=== PATIENT | female | born 1995 | race Caucasian/White ===

== ENCOUNTER 2017-08-31 12:04 | Emergency (ER) | payer OTHER ==
[2017-08-31 12:18] VITALS: BP 154/71; PULSE 110; TEMP 98; BMI 28.2
--- NOTE | 2017-08-31 13:33 | PDOC ---
Attending Attestation - Resident Resident Name: RoniMartin - ED Attending Attestation I have performed the following: I have examined & evaluated the patient, The case was reviewed & discussed with the resident, I agree w/resident's findings & plan, Exceptions are as noted - HPI HPI: 08/31/17 13:49 22y F hx of graves presents with abdominal pain x 7 days, pt notes the pain is diffuse, crampy in nautre and relatively constant. associated with some nausea w /o any vomiting, fever/chills, dysuria, frequency, diarrhea, melena, bpr, cp, sob. pt endorses some palpitations and lightheadedness. Pt had gone to [facility] and had a neg CT, neg labs, neg and was dc however the syptoms have not significantlyimproved so she presents to the ED today. the sypms are not worse with exertion, no change with food intake, position. + passing gas, 2 prior csections, on exam pt has mildly hyperactive bowel sounds midl diffuse tenderness, wors ein the RUQ no le edema ddx: gastroenteritis, pancreatitis, gallstones will ck cbc, cmp, lipase, ua, hcg will reassess - Medical Decision Making 08/31/17 18:44 pts labs reivewed pts US negative pt feeling improved abd soft nontender at discharg will have pt fu with gi and pmd return precautions were discussed Heart Score/ECG Review - ECG Impressions Comment:: 08/31/17 14:57 Twelve-lead EKG was performed and reviewed by me. There is normal sinus rhythm with a normal rate. Rate of 80 The axis is normal. The intervals are normal. There is normal R wave progression There are no ST or T wave abnormalities. Impression: Normal twelve-lead EKG
[2017-08-31] MEDS ORDERED: ACETAMINOPHEN 325 MG TABLET (FP) PO ONE (13:57)
[2017-08-31] MEDS ORDERED: SODIUM CHLORIDE 1,000 ML IV ONE (13:57)
[2017-08-31] MEDS ORDERED: ACETAMINOPHEN 325 MG TABLET (FP) ONE (14:05)
[2017-08-31 14:29] LABS: URINE APPEARANCE CLEAR; URINE BILIRUBIN NEGATIVE (<2.0 mg/dL); URINE COLOR YELLOW; URINE GLUCOSE (UA) NEGATIVE (NEGATIVE); URINE KETONE NEGATIVE (NEGATIVE); URINE LEUK ESTERASE NEGATIVE (NEGATIVE); URINE NITRITE NEGATIVE (NEGATIVE); URINE PROTEIN NEGATIVE (NEGATIVE); URINE UROBILINOGEN NEGATIVE mg/dL (0.2-1.0)
[2017-08-31 14:31] LABS: BASO % 0.9 % (0-2.0); EOS % 0.7 % (0-4.5); HEMATOCRIT 42.9 % (32.4-45.2); HEMOGLOBIN 14.4 GM/dL (10.7-15.3); LYMPH % 28.6 % (8-40); MCH 27.5 pg (25.7-33.7); MCHC 33.7 g/dl (32.0-36.0); MEAN CELL VOLUME 81.8 fl (80-96); MEAN PLT VOLUME 8.2 fl (7.5-11.1); MONO % 8.5 % (3.8-10.2); NEUT % 61.3 % (42.8-82.8); PLATELET COUNT 290 K/MM3 (134-434); RBC 5.25 M/mm3 (3.60-5.2); RDW 13.2 % (11.6-15.6); WHITE BLOOD COUNT 7.8 K/mm3 (4.0-10.0)
[2017-08-31 14:33] LABS: HCG,QUALITATIVE URINE NEGATIVE
[2017-08-31] MEDS ORDERED: SODIUM CHLORIDE 1,000 ML IV STA (15:14)
[2017-08-31] MEDS ORDERED: morphine CARPU-JECT 4 MG/1 ML DISP.SYRIN IVPUSH ONE (15:14)
[2017-08-31] MEDS ORDERED: ONDANSETRON 4 MG/2 ML VIAL IVPUSH ONE (15:14)
--- NOTE | 2017-08-31 15:26 | PDOC ---
History of Present Illness - General Chief Complaint: Pain Stated Complaint: ABD PAIN Time Seen by Provider: 08/31/17 13:22 History Source: Patient Exam Limitations: No Limitations - History of Present Illness Initial Comments: 08/31/17 15:17 Ms. Green is a 22 yo F with a hx of Grave's disease, anemia, and a recent ED visit (08/29/2017 at [facility] for same chief complaint) presents to the emergency department with abdominal pain that has been ongoing for 7 days. She states the pain initially presented in the middle lower abdomen and radiated to her right lower back. She has concurrent right upper quadrant pain that radiates to the left upper quadrant for the past 2 days. She was at [facility] for the same chief complaint and states her "CT abdomen and test was negative". The pain currently is 10/10 constant with no specific relieving or aggravating factors. She endorses the following: Chest pain (7/10 left chest non radiating described as sharp), palpitations, dizziness , lightheadedness, nausea, and anxiety. She denies fever, SOB, dysuria, hx of nephrolithiasis, hx of cholelithiasis, hematuria, diarrhea/constipation, and melena. Pmhx: Graves disease (dx Dec 2016), anemia, and asthma Shx: 2012 and 2017 section Medications: methimazole and atenolol Allergies: None Social: smokes 0.5 packs of ciagarettes/day, drinks 6 pack beer daily, and denies substance abuse OBGYN hx: . LMP was 08/09/2017 PCP: Zakiya Aguayo Past History - Past Medical History Allergies/Adverse Reactions: Allergies Allergy/AdvReac Type Severity Reaction Status Date / Time No Known Allergies Allergy Verified 08/31/17 12:18 Anemia: Yes Asthma: Yes COPD: No Psychiatric Problems: Yes (anxiety) Thyroid Disease: Yes (Graves dx) - Immunization History Immunization Up to Date: Yes - Suicide/Smoking/Psychosocial Hx Smoking History: Never smoked Have you smoked in the past 12 months: No Number of Cigarettes Smoked Daily: 2 Information on smoking cessation initiated: No 'Breaking Loose' booklet given: 02/15/15 Hx Alcohol Use: No Drug/Substance Use Hx: No Substance Use Type: None *Physical Exam - Vital Signs Last Vital Signs Temp Pulse Resp BP Pulse Ox 98.0 F 110 H 16 154/71 100 08/31/17 12:16 08/31/17 12:16 08/31/17 12:16 08/31/17 12:16 08/31/17 12:16 ED Treatment Course - LABORATORY CBC & Chemistry Diagram: 08/31/17 14:04 08/31/17 16:43 - ADDITIONAL ORDERS Additional order review: Laboratory Results 08/31/17 08/31/17 08/31/17 14:04 14:04 14:04 Sodium Cancelled Potassium Cancelled Chloride Cancelled Carbon Dioxide Cancelled Anion Gap Cancelled BUN Cancelled Creatinine Cancelled Creat Clearance w eGFR Cancelled Random Glucose Cancelled Calcium Cancelled Total Bilirubin Cancelled AST Cancelled ALT Cancelled Alkaline Phosphatase Cancelled Total Protein Cancelled Albumin Cancelled Lipase Cancelled TSH Cancelled Urine Color Yellow Urine Appearance Clear Urine pH 7.0 Ur Specific [place] 1.018 Urine Protein Negative Urine Glucose (UA) Negative Urine Ketones Negative Urine Blood Negative Urine Nitrite Negative Urine Bilirubin Negative Urine Urobilinogen Negative Ur Leukocyte Esterase Negative Urine HCG, Qual Negative 08/31/17 14:04 RBC 5.25 H MCV 81.8 MCHC 33.7 RDW 13.2 MPV 8.2 D Neutrophils % 61.3 Lymphocytes % 28.6 D Monocytes % 8.5 Eosinophils % 0.7 Basophils % 0.9 - Medications Given in the ED: ED Medications Discontinued Medications Generic Name Dose Route Start Last Admin Trade Name Freq PRN Reason Stop Dose Admin Acetaminophen 650 mg 08/31/17 13:57 08/31/17 14:19 Tylenol - PO 08/31/17 13:58 650 mg ONCE ONE Administration Sodium Chloride 1,000 mls @ 1,000 mls/hr 08/31/17 13:57 08/31/17 14:19 Normal Saline - IV 08/31/17 14:56 1,000 mls/hr .Q1H ONE Administration Medical Decision Making - Medical Decision Making 08/31/17 18:12 Ms. Green is a 22 yo F with a hx of Grave's disease who presented to the emergency department with abdominal pain with associated nausea. Initial vitals: Initial Vital Signs Temp Pulse Resp BP Pulse Ox 98.0 F 110 H 16 154/71 100 08/31/17 12:16 08/31/17 12:16 08/31/17 12:16 08/31/17 12:16 08/31/17 12:16 Work up: CBC CMP, hcg, lipase, TSH, UA, and EKG. Laboratory Results - last 24 hr 08/31/17 08/31/17 08/31/17 14:04 14:04 14:04 WBC 7.8 RBC 5.25 H Hgb 14.4 Hct 42.9 MCV 81.8 MCH 27.5 MCHC 33.7 RDW 13.2 Plt Count 290 MPV 8.2 D Absolute Neuts (auto) 4.7 Neutrophils % 61.3 Lymphocytes % 28.6 D Monocytes % 8.5 Eosinophils % 0.7 Basophils % 0.9 Nucleated RBC % 0 Sodium Cancelled Potassium Cancelled Chloride Cancelled Carbon Dioxide Cancelled Anion Gap Cancelled BUN Cancelled Creatinine Cancelled Creat Clearance w eGFR Cancelled Random Glucose Cancelled Calcium Cancelled Total Bilirubin Cancelled AST Cancelled ALT Cancelled Alkaline Phosphatase Cancelled Total Protein Cancelled Albumin Cancelled Lipase TSH Cancelled Urine Color Yellow Urine Appearance Clear Urine pH 7.0 Ur Specific [place] 1.018 Urine Protein Negative Urine Glucose (UA) Negative Urine Ketones Negative Urine Blood Negative Urine Nitrite Negative Urine Bilirubin Negative Urine Urobilinogen Negative Ur Leukocyte Esterase Negative Urine HCG, Qual Negative 08/31/17 08/31/17 14:04 16:43 WBC RBC Hgb Hct MCV MCH MCHC RDW Plt Count MPV Absolute Neuts (auto) Neutrophils % Lymphocytes % Monocytes % Eosinophils % Basophils % Nucleated RBC % Sodium 142 Potassium 4.2 Chloride 110 H Carbon Dioxide 23 Anion Gap 9 BUN 7 Creatinine 0.4 L Creat Clearance w eGFR > 60 Random Glucose 94 Calcium 8.8 Total Bilirubin 0.5 AST 24 ALT 29 Alkaline Phosphatase 128 H Total Protein 7.0 Albumin 3.3 L Lipase Cancelled 66 L TSH 0.01 L Urine Color Urine Appearance Urine pH Ur Specific [place] Urine Protein Urine Glucose (UA) Urine Ketones Urine Blood Urine Nitrite Urine Bilirubin Urine Urobilinogen Ur Leukocyte Esterase Urine HCG, Qual RUQ US shows: 3 gallbader wall polyps measuring 0.8 cm, 0.6cm, and 0.5cm in diameter respectively. The CBD measures 0.4 cm in diameter. No other abnormalities noted. Treatment: Given 650 mg of tylenol originally with 1 liter of NS 0.9%. Subsequently, given zofran and morphine 4mg for persistent pain. *DC/Admit/Observation/Transfer Diagnosis at time of Disposition: Abdominal pain Qualifiers: Abdominal location: right upper quadrant Qualified Code(s): R10.11 - Right upper quadrant pain - Discharge Dispostion Disposition: HOME Decision to Admit order: No - Referrals Referrals: Gabriel Sanders MD [Staff Physician] - Chuyita Aguayo [Primary Care Provider] - Rk Clemens MD [Staff Physician] - - Patient Instructions Printed Discharge Instructions: DI for Abdominal Pain-Adult - Post Discharge Activity
[2017-08-31 17:25] LABS: ALBUMIN 3.3 g/dl (3.4-5.0); ANION GAP 9 (8-16); BILIRUBIN,TOTAL 0.5 mg/dL (0.2-1.0); BLOOD UREA NITROGEN 7 mg/dL (7-18); CALCIUM 8.8 mg/dL (8.5-10.1); CHLORIDE 110 mmol/L (98-107); CO2 23 mmol/L (21-32); CREATININE 0.4 mg/dL (0.55-1.02); GLUCOSE,RANDOM 94 mg/dL (74-106); LIPASE 66 U/L (73-393); POTASSIUM 4.2 mmol/L (3.5-5.1); SGOT/AST 24 U/L (15-37); SGPT/ALT 29 U/L (12-78); SODIUM 142 mmol/L (136-145)
[2017-08-31] MEDS ORDERED: morphine SULFATE 4 MG/ML VIAL ONE (17:25)
[2017-08-31] MEDS ORDERED: ONDANSETRON 4 MG/2 ML VIAL ONE (17:25)
[2017-08-31 17:34] LABS: ALK PHOS 128 U/L (45-117)
--- NOTE | 2017-09-01 11:31 | EKG ---
Test Reason : Blood Pressure : / mmHG Vent. Rate : 080 BPM Atrial Rate : 080 BPM P-R Int : 170 ms QRS Dur : 096 ms QT Int : 410 ms P-R-T Axes : 047 049 035 degrees QTc Int : 472 ms NORMAL SINUS RHYTHM WITH SINUS ARRHYTHMIA NORMAL ECG NO PREVIOUS ECGS AVAILABLE Confirmed by HANDY PEPPER, NANCY ([id number]) on 09/01/2017 11:31:20 AM Referred By: Confirmed By:NANCY MURRELL MD
== END 2017-08-31 19:32 | disposition home or self-care (01) ==
LOC: JER 12:04
PROC: 3E0337Z Introduction of Electrolytic and Water Balance Substance into Peripheral Vein, Percutaneous Approach (ICD-10-PCS; principal; 2017-08-31)
PROC: 3E033GC Introduction of Other Therapeutic Substance into Peripheral Vein, Percutaneous Approach (ICD-10-PCS; 2017-08-31)
PROC: 3E033NZ Introduction of Analgesics, Hypnotics, Sedatives into Peripheral Vein, Percutaneous Approach (ICD-10-PCS; 2017-08-31)
DX: R10.11 Right upper quadrant pain (principal); D64.9 Anemia, unspecified; E05.00 Thyrotoxicosis with diffuse goiter without thyrotoxic crisis or storm; F41.9 Anxiety disorder, unspecified; F17.210 Nicotine dependence, cigarettes, uncomplicated
CPT/HCPCS: 36415; 76705-TC; 80053; 81003; 83690; 84443; 84703; 85025; 93005; 93010; 96361; 96374; 96375; 99282-25; J7030

== ENCOUNTER 2017-12-22 17:36 | Emergency (ER) | payer SELFPAY ==
[2017-12-22 17:54] VITALS: BMI 27.4
--- NOTE | 2017-12-22 18:26 | PDOC ---
History of Present Illness - General Chief Complaint: Palpitations Stated Complaint: ELEVATED HEART RATE Time Seen by Provider: 12/22/17 18:24 History Source: Patient - History of Present Illness Initial Comments: 12/22/17 19:59 The patient is a 22 year old female @ a self-reported 20 weeks gestation and a PMH of Graves Disease who presents c/o a 4 day h/o palpitations. Denies associated chest pain or shortness of breath. Patient states she was following with an skip operator, however had to stop doing so for logistical (travel costs) and insurance issues. Was evaluated by her patient intake representative last week and prescribed Labetalol, however has not filled the prescription secondary to cost. H/o recent evaluation at outside ED and given Atenolol prescription but similarly did not fill that prescription. States she has recently contacted her endo and is about to restart evaluation and care. Patient denies other symptoms of hyperthyroidism including weight loss, anxiety , sweating, increased frequency of bowel movements. NKDA Surgical: C-S Social: 1/2 ppd; 6 pack of beer daily, denies recreational drugs PMD: Dr. Chuyita Aguayo OB-Survey Workers Supervisor: Dr. De Paz As per EMR, patient was last evaluated in our ED in 08/2017 for abdominal pain at which time GB U/S was negative and patient improved with symptomatic care. Past History - Past Medical History Allergies/Adverse Reactions: Allergies Allergy/AdvReac Type Severity Reaction Status Date / Time No Known Allergies Allergy Verified 12/22/17 17:42 Home Medications: Ambulatory Orders Methimazole [Tapazole -] 20 mg PO BID 12/22/17 Anemia: Yes Asthma: Yes COPD: No CHF: No Psychiatric Problems: Yes (anxiety) Thyroid Disease: Yes (Graves dx) - Immunization History Immunization Up to Date: Yes - Suicide/Smoking/Psychosocial Hx Smoking History: Never smoked Have you smoked in the past 12 months: No Number of Cigarettes Smoked Daily: 2 Information on smoking cessation initiated: No 'Breaking Loose' booklet given: 02/15/15 Hx Alcohol Use: No Drug/Substance Use Hx: No Substance Use Type: None Review of Systems - Review of Systems Constitutional: No: Chills, Fever HEENTM: No: Blurred Vision, Double Vision Respiratory: No: Shortness of Breath, Wheezing Cardiac (ROS): Yes: Palpitations. No: Lightheadedness, Syncope ABD/GI: No: Diarrhea, Nausea, Vomiting, Abdominal cramping : No: Burning, Dysuria *Physical Exam - Vital Signs Last Vital Signs Temp Pulse Resp BP Pulse Ox 98.1 F 100 H 16 118/52 L 100 12/22/17 17:36 12/22/17 17:36 12/22/17 17:36 12/22/17 17:36 12/22/17 17:36 - Physical Exam General Appearance: Yes: Nourished, Appropriately Dressed HEENT: positive: Normal Voice, Hearing Grossly Normal Neck: positive: Trachea midline, Supple Respiratory/Chest: positive: Lungs Clear, Normal Breath Sounds. negative: Rapid RR Cardiovascular: positive: S1, S2, Tachycardia Gastrointestinal/Abdominal: positive: Normal Bowel Sounds, Soft Extremity: positive: Normal Capillary Refill, Normal Inspection Integumentary: positive: Normal Color, Dry, Warm Neurologic: positive: driver service technician II-XII NML intact, Fully Oriented, Alert Heart Score/ECG Review - ECG Impressions Comment:: 12/22/17 19:58 Sinus Tachycardia, HR 105, no PENNY/STD/TWI - non ischemic ECG ED Treatment Course - LABORATORY CBC & Chemistry Diagram: 12/22/17 19:12 12/22/17 19:12 Medical Decision Making - Medical Decision Making 12/22/17 20:07 22 year old @ a self-reported 20 weeks gestation female with palpitations. H/o Graves Disease w/poor medical adherence. Mildly tachycardic (HR 100) at presentation other VS unremarkable. Low clinical suspicion for thyrotoxicosis given patient's clinical presentation. Will obtain basic labs, TSH, T3/T4, EKG. Reassess. 12/22/17 20:13 ECG non-ischemic, no arrthymia, - as documented in ECG section of EMR 12/22/17 21:54 CBC, CMP unremarkable Importance of sustained medical evaluation extensively discussed with patient. Patient notes she has a labetalol prescription from her patient intake representative however she has not filled it. Patient given information on $4 prescription drug program. 12/22/17 22:07 Beta HCG 17,001 At this time patient is stable, though remains mildly tachycardic (HR 106). TSH 0.01 c/w clinical presentation/HPI. Given patient's h/o untreated hypothyroidism , have low clinical suspicion for medical emergent condition causing tachycardia. T3/Free T4 pending - will post in 48 hours. 12/22/17 22:14 Patient again counseled extensively on importance of full evaluation by endocrinology. Will return to ED for new/worsening/concerning symptoms. *DC/Admit/Observation/Transfer Diagnosis at time of Disposition: Heart palpitations - Discharge Dispostion Disposition: HOME Condition at time of disposition: Good Decision to Admit order: No - Referrals Referrals: Chuyita Aguayo [Primary Care Provider] - - Patient Instructions Printed Discharge Instructions: DI for Graves Disease Additional Instructions: Please call your OB-Survey Workers Supervisor and have your Labetalol prescription sent to one of the $4 pharmacies. It is very important that you reestablish care with your skip operator. Return to the Emergency Department for any new/worsening/concerning symptoms. - Post Discharge Activity
[2017-12-22] MEDS ORDERED: SODIUM CHLORIDE 0.9% 500 ML INFUS.BAG IV ONE (18:27)
--- NOTE | 2017-12-22 18:31 | PDOC ---
Attending Attestation - HPI HPI: 12/22/17 19:36 The patient is a 22 year old female who is currently 5 months , with a significant past medical history of Graves disease, who presents to the ED complaining of palpitations for the past 4 days. She reports that 4 days ago she went to another hospital for evaluation of palpitations. She was given atenolol and sent home. She notes that 3 days ago she saw her VENDING MACHINE OPERATOR for the same issue, who prescribed her labetalol but has not been able to take it due to an insurance issue. The patient denies chest pain, shortness of breath, headache and dizziness. Denies fever, chills, nausea, vomiting, diarrhea or constipation. Denies dysuria , frequency, urgency and hematuria. Allergies: None Past surgical history: . Social History: No alcohol, tobacco or drug use reported - Physicial Exam PE: 12/22/17 19:37 Constitutional: Awake, alert, oriented. No acute distress. Head: Normocephalic. Atraumatic Eyes: PERRL. EOMI. Conjunctivae are not pale. ENT: Mucous membranes are moist and intact. Posterior pharynx without exudates or erythema. Uvula midline. Neck: Supple. Full ROM. No lymphadenopathy. Cardiovascular: Regular rate. Regular rhythm. S1, S2 regular. Distal pulses are 2+ and symmetric. Pulmonary/Chest: No evidence of respiratory distress. Clear to auscultation bilaterally No wheezing, rales or rhonchi. Abdominal: (+) Protuberant belly. Soft. There is no tenderness. No rebound, guarding or rigidity. No organomegaly. No palpable masses. Good bowel sounds. Back: No CVA tenderness. Musculoskeletal: No edema. No cyanosis. No clubbing. Full range of motion in all extremities. Nocalf tenderness. Radial/pedal pulses are intact and 2+ bilaterally Skin: Skin is warm and dry. No petechiae. No purpura. Neurological: Alert and oriented to person, place, and time. Cranial nerves II -XII are grossly intact. Normal speech. Strength is grossly symmetric. No sensory deficits. Psychiatric: Good eye contact. Normal interaction, affect and behavior. <Chance Hooks - Last Filed: 12/22/17 19:38> - Resident Resident Name: Ananbel Encinas - ED Attending Attestation I have performed the following: I have examined & evaluated the patient, The case was reviewed & discussed with the resident, I agree w/resident's findings & plan, Exceptions are as noted - HPI HPI: 12/22/17 18:30 22-year-old female with a history of Graves' disease. Presents with complaint of palpitations. Patient is 5 months . She denies any chest pain - Medical Decision Making 12/22/17 19:52 afebrile cbc is unremarkable normotensive 12/23/17 00:14 labs reviewed pt has a prescription for labetolol but has not yet filled it because of insurance issues. It was explained to her that either Danny or Jo have a drug prescription program and she could have her RX filled there <Vanessa Garcia - Last Filed: 12/23/17 00:15>
[2017-12-22 19:20] LABS: BASO % 0.1 % (0-2.0); HEMATOCRIT 35.6 % (32.4-45.2); HEMOGLOBIN 12.1 GM/dL (10.7-15.3); LYMPH % 22.8 % (8-40); MCH 27.2 pg (25.7-33.7); MCHC 34.1 g/dl (32.0-36.0); MEAN CELL VOLUME 79.9 fl (80-96); MEAN PLT VOLUME 7.9 fl (7.5-11.1); MONO % 7.3 % (3.8-10.2); NEUT % 69.8 % (42.8-82.8); PLATELET COUNT 241 K/MM3 (134-434); RBC 4.46 M/mm3 (3.60-5.2); RDW 13.3 % (11.6-15.6); WHITE BLOOD COUNT 8.8 K/mm3 (4.0-10.0)
[2017-12-22 20:06] LABS: ALBUMIN 2.8 g/dl (3.4-5.0); ALK PHOS 93 U/L (45-117); ANION GAP 9 MMOL/L (8-16); BILIRUBIN,TOTAL 0.3 mg/dL (0.2-1); BLOOD UREA NITROGEN 8 mg/dL (7-18); CALCIUM 8.2 mg/dL (8.5-10.1); CHLORIDE 108 mmol/L (98-107); CO2 21 mmol/L (21-32); CREATININE 0.2 mg/dL (0.55-1.3); GLUCOSE,RANDOM 92 mg/dL (74-106); POTASSIUM 4.1 mmol/L (3.5-5.1); SGOT/AST 18 U/L (15-37); SGPT/ALT 21 U/L (13-61); SODIUM 138 mmol/L (136-145); TOT PROT 6.5 g/dl (6.4-8.2)
[2017-12-22 21:06] VITALS: BP 132/54
[2017-12-22 21:15] VITALS: PULSE 106; TEMP 97.9
--- NOTE | 2017-12-23 16:30 | EKG ---
Test Reason : Blood Pressure : / mmHG Vent. Rate : 105 BPM Atrial Rate : 105 BPM P-R Int : 150 ms QRS Dur : 084 ms QT Int : 344 ms P-R-T Axes : 039 036 031 degrees QTc Int : 454 ms SINUS TACHYCARDIA OTHERWISE NORMAL ECG WHEN COMPARED WITH ECG OF 31-AUG-2017 14:39, T WAVE AMPLITUDE HAS DECREASED IN ANTERIOR LEADS Confirmed by MD Morenita, Dre ([id number]) on 12/23/2017 4:29:50 PM Referred By: Confirmed By:Dre Xavier MD
== END 2017-12-22 22:01 | disposition home or self-care (01) ==
LOC: JER 17:36
DX: O26.892 Other specified pregnancy related conditions, second trimester (principal); R00.2 Palpitations; O99.282 Endocrine, nutritional and metabolic diseases complicating pregnancy, second trimester; E05.00 Thyrotoxicosis with diffuse goiter without thyrotoxic crisis or storm; Z3A.20 20 weeks gestation of pregnancy
CPT/HCPCS: 36415; 80053; 82550; 84436; 84443; 84481; 84484; 84702; 85025; 93005; 93010; 99283-25

== ENCOUNTER 2018-01-20 10:13 | Emergency (ER) | payer SELFPAY ==
[2018-01-20 10:22] VITALS: BMI 27.1
[2018-01-20 12:12] VITALS: BP 122/53; PULSE 95; TEMP 98.5
== END 2018-01-20 13:42 | disposition home or self-care (01) ==
LOC: JER 10:13
DX: O26.892 Other specified pregnancy related conditions, second trimester (principal); Z3A.23 23 weeks gestation of pregnancy; R10.2 Pelvic and perineal pain
CPT/HCPCS: 76815-TC; 99281-25

== ENCOUNTER 2018-01-25 09:20 | Inpatient (IN) | payer MEDICARE ==
[2018-01-25] MEDS ORDERED: DEXTROSE 5%-LACTATED RINGERS 1,000 ML IV SCH (09:45)
[2018-01-25 09:57] VITALS: BMI 28.8
[2018-01-25 10:10] LABS: BASO % 0.1 % (0-2.0); HEMATOCRIT 34.6 % (32.4-45.2); LYMPH % 13.3 % (8-40); MCH 27.7 pg (25.7-33.7); MCHC 34.8 g/dl (32.0-36.0); MEAN CELL VOLUME 79.7 fl (80-96); MEAN PLT VOLUME 7.9 fl (7.5-11.1); NEUT % 78.6 % (42.8-82.8); PLATELET COUNT 269 K/MM3 (134-434); RBC 4.34 M/mm3 (3.60-5.2); RDW 13.6 % (11.6-15.6); WHITE BLOOD COUNT 9.9 K/mm3 (4.0-10.0)
--- NOTE | 2018-01-25 10:17 | HP ---
Past Medical History - Primary Care Physician PCP:: Odalis Mckinley - Admission Chief Complaint: 22 yrs , 24.1/7 weeks by dates & jacky is brought by ambulence due to PROM since 8.00AM . no c/o cramps , c/o back ache. h/o previous c/sections x2. h/o hyperthyroidism History of Present Illness: care at Dr Clemens's office, affilated with [facility] she has 3 visits with her Ob pmd By jacky & emil she was assigned EDC chart not available . Pt had presented in L&D on 01/20/18, she c/o vaginal bleeding , she was seen by MD , no bleeding was noted 01/20/18 jacky at [facility] done SLIUP 22.4 weeks, , post placenta , no previa , cx 3.5 cm length , AF normal ,Cx 3.5 cm she was discharged History Source: Patient, Medical Record Limitations to Obtaining History: No Limitations - Past Medical History [employer]: No: Migraine, Seizure Cardiovascular: No: HTN, Murmur Pulmonary: Yes: Asthma (rx inhaler used 2 months ago) Hepatobiliary: Yes: Other (declines) Renal/: Yes: Other (declines) ...: 3 ...Para: 2 ...Term: 2 ...: 0 ...Spon : 0 ...Induced : 0 ...Multiple Gestation: 0 ... Weeks Gestation by Dates: 24.1 ...EDC by Emil: 05/16/18 ...EDC by Jacky: 05/16/18 (24.1 weeks , as per patient ) Additional OB History: G1 2012 Primary c/section at [facility] 8'5' failure to progress. G2 03/2016 Repeat C/section at [facility] 8'7" failed Heme/Onc: Yes: Anemia Infectious Disease: Yes: Other (declines) Psych: No: Addictions, Anxiety, Bipolar, Depression, Panic, Psychosis, Schizophrenia, Other Endocrine: Yes: Hyperthyroidism (diagnosed in 12/2016 rx Metamethazole 40 mg bid , Atenalol 25 mg bid she follows with endocrinoogist from [facility] & she has not seen provider in few months pt non compliant with meds) - Past Surgical History Past Surgical History: Yes: (2012 & 2016) Hx Myomectomy: No Hx Transabdominal Cerclage: No - Smoking History Smoking history: Never smoked Have you smoked in the past 12 months: No Aproximately how many cigarettes per day: 2 - Alcohol/Substance Use Hx Alcohol Use: No History of Substance Use: reports: None - Social History History of Recent Travel: No Home Medications - Allergies Allergies/Adverse Reactions: Allergies Allergy/AdvReac Type Severity Reaction Status Date / Time No Known Allergies Allergy Verified 12/22/17 17:42 - Home Medications Home Medications: Ambulatory Orders Methimazole [Tapazole -] 20 mg PO BID 12/22/17 Prenat 115/Iron Fum/Folic/Dss [ 19 Tablet] 1 tab PO DAILY 01/20/18 Albuterol Sulfate Inhaler - [Ventolin Hfa Inhaler -] 1 - 2 inh PO Q4H PRN Atenolol [Tenormin] 25 mg PO BID 01/25/18 Physical Exam - Maternity Vital Signs: Vital Signs Temperature 98.5 F 01/25/18 09:51 Pulse Rate 115 H 01/25/18 09:51 Respiratory Rate 20 01/25/18 09:51 Blood Pressure 138/69 01/25/18 09:51 O2 Sat by Pulse Oximetry (%) Selected Entries 01/25/18 09:51 Weight 179 lb Constitutional: Yes: Well Nourished, No Distress Eyes: Yes: WNL HENT: Yes: WNL, Normocephalic Neck: Yes: WNL Cardiovascular: Yes: WNL, Regular Rate and Rhythm Lungs: Clear to auscultation, Other (no wheezing) Breast(s): Yes: WNL - Abdominal Exam/OB Fundal Height: 22 Number of Fetuses: Single Presentation: Breech Contractions: No Monitor Mode: External Heart Rate (range): 140 Heart Rate Location: Midline Category: I (appropriate for gestational age) - Vaginal Exam/OB Vaginal Bleediing: No Speculum Exam: Yes Dilatation (cm): close Effacement (%): unefface Amniotic Membrane Status: Ruptured Nitrazine Test: Positive Amniotic Fluid: Yes: Clear Presentation: Nikhil Breech Station: -3 - Physical Exam Musculoskeletal: Yes: WNL Extremities: Yes: WNL. No: Calf Tenderness Edema: No Integumentary: Yes: Incision (old pfannenstaeil scar) Deep Tendon Reflex Grade: Normal +2 ...Motor Strength: WNL Psychiatric: Yes: WNL, Alert, Oriented - Labs Lab Results: Laboratory Tests 01/25/18 01/25/18 01/25/18 09:55 09:55 09:55 WBC 9.9 Hgb 12.0 Hct 34.6 Plt Count 269 PT with INR 11.90 INR 1.01 PTT (Actin FS) 27.6 Sodium 138 Potassium 4.2 Chloride 106 Carbon Dioxide 24 BUN 7 Creatinine 0.3 L Random Glucose 84 AST 17 Alkaline Phosphatase 105 TSH Free T4 Resin T3 Uptake 01/25/18 01/25/18 09:55 09:55 WBC Hgb Hct Plt Count PT with INR INR PTT (Actin FS) Sodium Potassium Chloride Carbon Dioxide BUN Creatinine Random Glucose AST Alkaline Phosphatase TSH < 0.01 L Free T4 4.30 H Resin T3 Uptake 43.3 H Problem List - Problems (1) 24 weeks gestation of Code(s): Z3A.24 - 24 WEEKS GESTATION OF (2) PROM (premature rupture of membranes) Code(s): O42.90 - CHANA ROM, 7TH0 BETW RUPT & ONST LABR, UNSP WEEKS OF GEST Qualifiers: PROM gestational age: -second trimester (3) Hyperthyroidism affecting in second trimester Code(s): O99.282 - ENDO, NUTRITIONAL AND METAB DISEASES COMP PREG, SECOND TRI; E05.90 - THYROTOXICOSIS, UNSP WITHOUT THYROTOXIC CRISIS OR STORM (4) Previous section Code(s): Z98.891 - HISTORY OF UTERINE SCAR FROM PREVIOUS SURGERY Assessment/Plan 22 yrs , 24.1/7 weeks iup breech presentation ,previous c/section x2 PROM hyperthyroidism on metamthazole & atenalol Plan: expectant management transfer to [facility] Dr [place] agricultural produce sorter saw the patient , recommends transfer . 01/25/18 Ob US SLIUP 24 .0 weeks , breech, efw 708 gm(1'9"), mvp3.9cm , cx 4cm 10.50 AM [facility] Transport cr Dr Harris from Ob dept accepted transport recommend antibiotics Iv Ampicillin steroid betamethasone 12.5mg im stat MgSo4 4 gm loading dose 11.42 AM Transfer to [facility] by EMS
[2018-01-25] MEDS ORDERED: AMPICILLIN SODIUM 2 GM VIAL ONE (10:51)
[2018-01-25 10:52] LABS: ALBUMIN 2.6 g/dl (3.4-5.0); ALK PHOS 105 U/L (45-117); ANION GAP 7 MMOL/L (8-16); BILIRUBIN,TOTAL 0.3 mg/dL (0.2-1); BLOOD UREA NITROGEN 7 mg/dL (7-18); CALCIUM 8.6 mg/dL (8.5-10.1); CHLORIDE 106 mmol/L (98-107); CO2 24 mmol/L (21-32); CREATININE 0.3 mg/dL (0.55-1.3); GLUCOSE,RANDOM 84 mg/dL (74-106); POTASSIUM 4.2 mmol/L (3.5-5.1); SGOT/AST 17 U/L (15-37); SGPT/ALT 13 U/L (13-61); SODIUM 138 mmol/L (136-145); TOT PROT 6.5 g/dl (6.4-8.2)
[2018-01-25] MEDS ORDERED: AMPICILLIN - 2 GM in SODIUM CHLORIDE 100 ML IVPB ONE (10:53)
[2018-01-25] MEDS ORDERED: BETAMET ACET/BETAMET NA PH 30 MG/5 ML VIAL IM ONE (10:54)
[2018-01-25] MEDS ORDERED: BETAMET ACET/BETAMET NA PH 30 MG/5 ML VIAL ONE (10:57)
[2018-01-25] MEDS ORDERED: MAGNESIUM 4GM/H20 - 4 GM/100 ML IVPB IVPB SCH (11:00)
[2018-01-25 11:30] VITALS: BP 127/55; PULSE 108; TEMP 98.3
[2018-01-25 12:23] LABS: INR 1.01 (0.83-1.09); PROTHROMBIN TIME (PATIENT) 11.9 SEC (9.7-13.0)
[2018-01-25 12:25] LABS: ACTIVATED PTT 27.6 SECONDS (25.2-36.5)
== END 2018-01-25 11:57 | disposition short-term general hospital (02) | DRG 566 ==
LOC: JDEL 09:20 → JLDR 09:21
PROVIDERS: ADMIT Obstetrics & Gynecology; ATTEND Obstetrics & Gynecology
DX: O42.012 Preterm premature rupture of membranes, onset of labor within 24 hours of rupture, second trimester (principal); O26.892 Other specified pregnancy related conditions, second trimester; J45.909 Unspecified asthma, uncomplicated; O99.282 Endocrine, nutritional and metabolic diseases complicating pregnancy, second trimester; E03.9 Hypothyroidism, unspecified; Z3A.24 24 weeks gestation of pregnancy; Z98.891 History of uterine scar from previous surgery
CPT/HCPCS: 36415; 76801-TC; 80053; 84439; 84443; 84479; 85025; 85610; 85730; 86850; 86900; 86901; 96372

== ENCOUNTER 2019-04-15 11:04 | Emergency (ER) | payer SELFPAY ==
[2019-04-15 11:09] VITALS: TEMP 97.8; BMI 32.3
[2019-04-15] MEDS ORDERED: DEXAMETHASONE SOD PHOSPHATE 10 MG/1 ML VIAL IVPUSH ONE (11:16)
[2019-04-15] MEDS ORDERED: SODIUM CHLORIDE 1,000 ML IV STA (11:17)
--- NOTE | 2019-04-15 11:17 | PDOC ---
History of Present Illness - General Chief Complaint: Allergic Reaction Stated Complaint: SWOLLEN Time Seen by Provider: 04/15/19 11:11 History Source: Patient Exam Limitations: No Limitations - History of Present Illness Initial Comments: 23 year old female with PMH anemia, HTN, graves disease (off methimazole + atenolol >x1 month 2/2 lack of health insurance) presented to ED for sensation of airway swelling since last night. Pt reported no new foods last night, reported her throat has felt like its been slowly progressively swelling with intermittent SOB. ROS General: denied fever, chills, generalized weakness. HEENT: admitted sore throat, throat swelling. denied rhinorrhea, ear pain. Cardiovascular: denied chest pain, palpitations, syncope, diaphoresis. Respiratory: denied shortness of breath, cough, sputum production, hemoptysis. Gastrointestinal: denied abdominal pain, nausea, vomiting, diarrhea, constipation, blood in stool. Genitourinary: denied dysuria, increased urinary frequency, hematuria, urinary incontinence, flank pain. Back: denied back pain. Musculoskeletal: denied joint pain, muscle pain, joint swelling. Neurological: denied headache, dizziness, numbness, tingling, weakness. Integumentary: denied rash, laceration, abrasion. Hematologic/Lymphatic: denied bruising or bleeding. Psych: admitted to anxiety. PE Constitutional: Well-nourished, Well-developed, appearing stated age. HEENT: head is normocephalic, atraumatic. EOMI. PERRLA. uvula midline with no swelling. no peritonsillar swelling. no tongue swelling. no swelling beneath tongue. pt cannot open her mouth wide enough to assess posterior pharynx. Pt is speaking full sentences. No voice changes. No muffles voice. Neck: supple. Full ROM. Cardiovascular: tachycardic. regular heart rhythm. Normal S1 and S2. no murmurs. no pericardial friction rub. Respiratory: clear to auscultation bilaterally. no crackles, rhonchi or wheezing. no stridor. Gastrointestinal: soft, flat, nontender. normal bowel sounds. no rebound, guarding, or masses. Extremities: peripheral pulses intact and equal. no lower extremity edema noted. no calf tenderness bilaterally. Neurological: CN 2-12 grossly intact. moves all four extremities. Psych: awake, alert, oriented x3. follows commands. answers questions appropriately. Past History - Past Medical History Allergies/Adverse Reactions: Allergies Allergy/AdvReac Type Severity Reaction Status Date / Time No Known Allergies Allergy Verified 12/22/17 17:42 Home Medications: Ambulatory Orders Prenat 115/Iron Fum/Folic/Dss [ 19 Tablet] 1 tab PO DAILY 01/20/18 Albuterol Sulfate Inhaler - [Ventolin Hfa Inhaler -] 1 - 2 inh PO Q4H PRN 01/25/18 Atenolol [Tenormin] 25 mg PO BID 01/25/18 Amoxicillin - [Amoxicillin 500mg Capsule -] 500 mg PO BID #19 capsule 04/15/19 Atenolol [Tenormin -] 25 mg PO DAILY #30 tablet 04/15/19 Methimazole 10 mg PO TID #90 tablet 04/15/19 - Immunization History Immunization Up to Date: Yes - Psycho Social/Smoking Cessation Hx Smoking History: Never smoked Have you smoked in the past 12 months: No Number of Cigarettes Smoked Daily: 2 Information on smoking cessation initiated: No 'Breaking Loose' booklet given: 02/15/15 Hx Alcohol Use: No Drug/Substance Use Hx: No Substance Use Type: None Hx Substance Use Treatment: No *Physical Exam - Vital Signs Last Vital Signs Temp Pulse Resp BP Pulse Ox 97.8 F 118 H 18 120/59 L 98 04/15/19 11:06 04/15/19 11:06 04/15/19 11:06 04/15/19 11:06 04/15/19 11:06 ED Treatment Course - LABORATORY CBC & Chemistry Diagram: 04/15/19 11:10 04/15/19 11:10 Medical Decision Making - Medical Decision Making 23 year old female with above PMH presented to ED for throat swelling sensation since last night. Initial Vital Signs Temp Pulse Resp BP Pulse Ox 97.8 F 118 H 18 120/59 L 98 04/15/19 11:06 04/15/19 11:06 04/15/19 11:06 04/15/19 11:06 04/15/19 11:06 Afebrile. Tachycardic, No tachypnea. No hypertension. No hypoxia on room air. Labs ordered: CBC, CMP, TSH, Free T4, beta quant Imaging ordered: Medications ordered: normal saline bolus 1000 cc once, decadron 10 mg IV once EKG performed at 1139: rate 104, regular rhythm, normal axis, normal intervals, flipped T III, no other ST changes. 04/15/19 12:13 Laboratory Last Values WBC 15.2 K/mm3 (4.0-10.0) H 04/15/19 11:10 RBC 4.78 M/mm3 (3.60-5.2) 04/15/19 11:10 Hgb 13.3 GM/dL (10.7-15.3) 04/15/19 11:10 Hct 39.1 % (32.4-45.2) 04/15/19 11:10 MCV 81.7 fl (80-96) 04/15/19 11:10 MCH 27.9 pg (25.7-33.7) 04/15/19 11:10 MCHC 34.1 g/dl (32.0-36.0) 04/15/19 11:10 RDW 13.2 % (11.6-15.6) 04/15/19 11:10 Plt Count 361 K/MM3 (134-434) D 04/15/19 11:10 MPV 7.5 fl (7.5-11.1) 04/15/19 11:10 Absolute Neuts (auto) 10.7 K/mm3 (1.5-8.0) H 04/15/19 11:10 Neutrophils % 70.4 % (42.8-82.8) 04/15/19 11:10 Lymphocytes % 21.4 % (8-40) D 04/15/19 11:10 Monocytes % 7.9 % (3.8-10.2) 04/15/19 11:10 Eosinophils % 0.0 % (0-4.5) 04/15/19 11:10 Basophils % 0.3 % (0-2.0) 04/15/19 11:10 Nucleated RBC % 0 % (0-0) 04/15/19 11:10 Sodium 137 mmol/L (136-145) 04/15/19 11:10 Potassium 3.8 mmol/L (3.5-5.1) 04/15/19 11:10 Chloride 105 mmol/L (98-107) 04/15/19 11:10 Carbon Dioxide 25 mmol/L (21-32) 04/15/19 11:10 Anion Gap 7 MMOL/L (8-16) L 04/15/19 11:10 BUN 7.5 mg/dL (7-18) 04/15/19 11:10 Creatinine 0.6 mg/dL (0.55-1.3) 04/15/19 11:10 Est GFR (CKD-EPI)AfAm 147.86 04/15/19 11:10 Est GFR (CKD-EPI)NonAf 127.58 04/15/19 11:10 Random Glucose 95 mg/dL (74-106) 04/15/19 11:10 Calcium 8.9 mg/dL (8.5-10.1) 04/15/19 11:10 Total Bilirubin 0.5 mg/dL (0.2-1) 04/15/19 11:10 AST 18 U/L (15-37) 04/15/19 11:10 ALT 26 U/L (13-61) 04/15/19 11:10 Alkaline Phosphatase 110 U/L (45-117) 04/15/19 11:10 Total Protein 7.8 g/dl (6.4-8.2) 04/15/19 11:10 Albumin 3.6 g/dl (3.4-5.0) 04/15/19 11:10 TSH 0.01 uIU/ml (0.358-3.74) L 04/15/19 11:10 Free T4 2.13 ng/dl (0.76-1.46) H 04/15/19 11:10 Beta HCG, Quant < 1.0 mIU/ml 04/15/19 11:10 Group A Strep Rapid Positive (Negative) 04/15/19 11:10 Leukocytosis with left shift. No anemia. No electrolyte abnormalities. No LULÚ. No transaminitis. Hyperthyroid. GAS positive Dr. Myles, Endocrine, paged. Medications ordered: Amoxicillin 500 mg PO once 04/15/19 12:[address] Myles, if patient can afford medication and will follow up in [facility] can be discharged on Methimazole 10 mg TID and Atenolol 25 mg PO daily, if not can be admitted. Options discussed with patient, she reported she prefers to follow up outpatient, will product picker prescriptions today. Medications ordered: Atenolol 25 mg PO once, Methimazole 10 mg once 04/15/19 13:19 Vital Signs Pulse Rate 90 04/15/19 13:17 Respiratory Rate 16 04/15/19 13:17 Blood Pressure 102/89 04/15/19 13:17 Tachycardia improved with Atenolol. Pt reported complete resolution of symptoms, stated she feels much better. Pt to be discharged, will F/U with [facility], will product picker prescriptions from [facility] in [facility]. Discharge - Discharge Information Problems reviewed: Yes Clinical Impression/Diagnosis: Hyperthyroidism, Strep throat Condition: Improved Disposition: HOME - Admission No - Additional Discharge Information Prescriptions: Amoxicillin - [Amoxicillin 500mg Capsule -] 500 mg PO BID #19 capsule Methimazole 10 mg PO TID #90 tablet Atenolol [Tenormin -] 25 mg PO DAILY #30 tablet - Follow up/Referral Referrals: Ronnie Catalan MD [Staff Physician] - - Patient Discharge Instructions Patient Printed Discharge Instructions: DI for Strep Throat, DI for Graves Disease, DI for Hyperthyroidism Additional Instructions: Follow up in the [facility] as soon as possible. Bring all paperwork given to you today. Bring all medication bottles that you are taking. I have prescribed you Methimazole and Atenolol. Please follow up with a primary care doctor promptly, as you will need your thyroid function measured again. YOU MUST FOLLOW UP. I have prescribed Amoxicillin for Strep Throat. Take as advised on label. Do not stop early even if you are feeling better. Take an over the counter probiotic or eat upper sorbian yogurt to help prevent antibiotics associated diarrhea. Take ibuprofen 600 mg every 8 hours as needed for sore throat/body aches/fever. Take tylenol 1000 mg every 8 hours as needed for sore throat/body aches/fever. Tylenol and ibuprofen are not the same medication and can be safely used together. Increase your gatorade/pedialyte intake. Get 8 hours of sleep a night. Eat three meals a day. Return to the Emergency Department for increasing pain, swelling sensation to throat, shortness of breath, intractable vomiting, fever>103F, fever>5 days, increasing rash, lightheadedness, palpitations, passing out, chest pain or any other new, worsening or concerning symptoms. - Post Discharge Activity Work/Back to School Note: Back to Work
[2019-04-15] MEDS ORDERED: DEXAMETHASONE SOD PHOSPHATE 10 MG/1 ML VIAL ONE (11:22)
[2019-04-15 11:37] LABS: BASO % 0.3 % (0-2.0); HEMATOCRIT 39.1 % (32.4-45.2); HEMOGLOBIN 13.3 GM/dL (10.7-15.3); LYMPH % 21.4 % (8-40); MCH 27.9 pg (25.7-33.7); MCHC 34.1 g/dl (32.0-36.0); MEAN CELL VOLUME 81.7 fl (80-96); MEAN PLT VOLUME 7.5 fl (7.5-11.1); MONO % 7.9 % (3.8-10.2); NEUT % 70.4 % (42.8-82.8); PLATELET COUNT 361 K/MM3 (134-434); RBC 4.78 M/mm3 (3.60-5.2); RDW 13.2 % (11.6-15.6); WHITE BLOOD COUNT 15.2 K/mm3 (4.0-10.0)
[2019-04-15 12:04] LABS: ALBUMIN 3.6 g/dl (3.4-5.0); ALK PHOS 110 U/L (45-117); ANION GAP 7 MMOL/L (8-16); BILIRUBIN,TOTAL 0.5 mg/dL (0.2-1); BLOOD UREA NITROGEN 7.5 mg/dL (7-18); CALCIUM 8.9 mg/dL (8.5-10.1); CHLORIDE 105 mmol/L (98-107); CO2 25 mmol/L (21-32); CREATININE 0.6 mg/dL (0.55-1.3); GLUCOSE,RANDOM 95 mg/dL (74-106); POTASSIUM 3.8 mmol/L (3.5-5.1); SGOT/AST 18 U/L (15-37); SGPT/ALT 26 U/L (13-61); SODIUM 137 mmol/L (136-145); TOT PROT 7.8 g/dl (6.4-8.2)
[2019-04-15] MEDS ORDERED: IBUPROFEN 600 MG TABLET (FP) PO ONE ×2 (12:09→12:13)
[2019-04-15] MEDS ORDERED: ACETAMINOPHEN 1000 MG/100 ML VIAL (NON FORMULARY) IVPB ONE (12:09)
[2019-04-15] MEDS ORDERED: AMOXICILLIN 500 MG CAPSULE (FP) PO ONE (12:12)
[2019-04-15] MEDS ORDERED: ACETAMINOPHEN INJECTION 100 ML IVPB ONE (12:13)
[2019-04-15] MEDS ORDERED: ATENOLOL 25 MG TABLET (FP) PO ONE (12:16)
[2019-04-15] MEDS ORDERED: ATENOLOL 25 MG TABLET (FP) ONE (12:21)
[2019-04-15] MEDS ORDERED: AMOXICILLIN 500 MG CAPSULE (FP) ONE (12:21)
[2019-04-15] MEDS ORDERED: METHIMAZOLE 10 MG TABLET (FP) PO ONE (12:30)
--- NOTE | 2019-04-15 12:48 | PDOC ---
Documentation entered by Juan Manuel Rader SCRIBE, acting as scribe for Ashish Chaparro MD. Ashish Chaparro MD: This documentation has been prepared by the Prasanth dallas Nirvannie, SCRIBE, under my direction and personally reviewed by me in its entirety. I confirm that the documentation accurately reflects all work, treatment, procedures, and medical decision making performed by me. Attending Attestation - Resident Resident Name: Kathleen Ramos - ED Attending Attestation I have performed the following: I have examined & evaluated the patient, The case was reviewed & discussed with the resident, I agree w/resident's findings & plan, Exceptions are as noted - HPI HPI: 04/15/19 12:00 The patient is a year old female, with a significant past medical history of hypertension, anemia, Graves Disease (noncompliant with methimazole and atenolol >1 month secondary to no health insurance) who presents to the emergency department with 1.5 days of sore thraot, mild nasal congestion w/o fever/chills, cough, cp, sob/simpson, abd pain, n/v. As per patient, her symptoms onset last night with progressively worsening intermittent shortness of breath. 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 HEAD: Normocephalic, atraumatic. EYES: extraocular movements intact, sclera anicteric, conjunctiva clear. ENT: Normal voice, Moist mucous membranes. symmetric posterior pharynx without assymetry or signs of fullness. No stridor mild erytghema in posterior pharynx wo exudates NECK: Normal range of motion, supple LUNGS: Breath sounds equal, clear to auscultation bilaterally. No wheezes, no rhonchi, no rales. HEART: Regular rate and rhythm, normal S1 and S2 without murmur, rub or gallop. ABDOMEN: Soft, nontender, No guarding, no rebound. No CVA tenderness EXTREMITIES: Normal range of motion, no edema. NEUROLOGICAL: No facial assymetry, Normal speech, moving all 4 extremties spontaneously and summetrcally PSYCH: Normal mood, normal affect. SKIN: Warm, Dry, normal turgor, - Medical Decision Making 04/15/19 12:47 The patient's rapid strep resulted positive we will treat the patient with antibiotics. The patient's thyroid function also returned suggestive of hyperthyroidism - The case was discussed with endocrine, will restart the patient on atenolol methimazole will have the patient follow-up with clinic Strict return precautions were discussed Heart Score/ECG Review - ECG Impressions Comment:: 04/15/19 12:48 Twelve-lead EKG was performed and reviewed by me. There is normal sinus rhythm with a Rate of 104 The axis is normal. The intervals are normal. There is normal R wave progression There are no ST or T wave abnormalities. Impression: Sinus tachycardia
[2019-04-15 13:18] VITALS: BP 102/89; PULSE 90
--- NOTE | 2019-04-15 13:59 | EKG ---
Test Reason : Blood Pressure : / mmHG Vent. Rate : 104 BPM Atrial Rate : 104 BPM P-R Int : 158 ms QRS Dur : 086 ms QT Int : 342 ms P-R-T Axes : 035 030 017 degrees QTc Int : 449 ms SINUS TACHYCARDIA OTHERWISE NORMAL ECG WHEN COMPARED WITH ECG OF 22-DEC-2017 19:05, NO SIGNIFICANT CHANGE WAS FOUND Confirmed by DEMETRIA NICOLE MD ([id number]) on 04/15/2019 1:58:26 PM Referred By: Confirmed By:DEMETRIA NICOLE MD
== END 2019-04-15 13:44 | disposition home or self-care (01) ==
LOC: JER 11:04
PROC: 3E033NZ Introduction of Analgesics, Hypnotics, Sedatives into Peripheral Vein, Percutaneous Approach (ICD-10-PCS; principal; 2019-04-15)
PROC: 3E0333Z Introduction of Anti-inflammatory into Peripheral Vein, Percutaneous Approach (ICD-10-PCS; 2019-04-15)
DX: J02.0 Streptococcal pharyngitis (principal); B95.0 Streptococcus, group A, as the cause of diseases classified elsewhere; I10 Essential (primary) hypertension; D64.9 Anemia, unspecified; E05.00 Thyrotoxicosis with diffuse goiter without thyrotoxic crisis or storm; D72.829 Elevated white blood cell count, unspecified
CPT/HCPCS: 36415; 80053; 84439; 84443; 84702; 85025; 87880; 93005; 93010; 99284-25; J0131; J1100; J7030